=== PATIENT | female | born 1965 | race Caucasian/White ===

== ENCOUNTER 2017-06-26 15:17 | Observation (INO) ==
--- NOTE | 2017-06-26 18:05 | Emergency Department Note ---
Disposition Clinical Impression: Renal failure Qualifiers: Renal failure chronicity: acute on chronic Acute renal failure type: unspecified Chronic kidney disease stage: on chronic dialysis Qualified Code(s) : N17.9 - Acute kidney failure, unspecified Disposition: Admitted As Inpatient Condition: Fair Referrals: Yudy Dallas MD [Primary Care Provider] - Forms: ED Satisfaction Letter Time of Disposition: 19:36 General Adult HPI - General Chief complaint: ED Recheck/Abnormal Lab/Rx Stated complaint: Here for dialysis cath placement Time Seen by Provider: 06/26/17 17:59 Source: patient Limitations: no limitations Nursing Notes Reviewed: Yes Vital Signs Reviewed: Yes - History of Present Illness HPI Narrative: 51-year-old female who has a history of renal failure had a fistula placed in her left arm back in October they started using it 3 days ago and now it's clotted and infiltrated. did call-in notes that the patient will need to be admitted will need a permacath. Pt Subjective Complaint: Need dialysis catheter placed Onset (ago): day(s) Location: other (Generalized) Pain Scale: 10 Quality: aching Consistency: constant Improves with: nothing Worsens with: nothing Associated symptoms: Denies: cough, fever/chills - Related Data Allergies Allergy/AdvReac Type Severity Reaction Status Date / Time No Known Allergies Allergy Unverified 07/16/15 00:37 All systems ED: reviewed and negative except as stated. Constitutional: Denies: fever, chills, weakness, weight change Eyes: Denies: eye pain, eye discharge, vision change ENT ED: Denies: ear pain, throat pain, dental pain, hearing loss, epistaxis, congestion, dysphagia Cardiovascular: Denies: chest pain, palpitations, dyspnea on exertion, edema, syncope Respiratory: Denies: cough, dyspnea, wheezes, hemoptysis, stridor Gastrointestinal: Denies: abdominal pain, nausea, vomiting, diarrhea, constipation, hematemesis, melena, hematochezia Genitourinary: Denies: dysuria, frequency, hematuria, discharge Musculoskeletal: Denies: back pain, neck pain, arthralgia, myalgia Integumentary: Denies: rash, abrasion, lesions Neurological: Denies: headache, weakness, numbness, paresthesias, confusion, abnormal gait, vertigo Psychiatric: Denies: anxiety, depression, suicidal thoughts, homicidal thoughts , auditory hallucinations, visual hallucinations Endocrine: Denies: fatigue Hematological/Lymphatic: Denies: easy bleeding, easy bruising Allergic/Immunologic: Denies: facial swelling, urticaria Past Medical History - Past Medical History Medical history: Reports: diabetes, renal disease Psychiatric history: Reports: anxiety, depression - Social History Smoking Status: Former smoker Smokeless Tobacco Status: No Alcohol use: Reports: none Drug use: Reports: none Physical Exam - General Limitations: no limitations General appearance: alert, in no apparent distress - Head Head exam: atraumatic, normocephalic, normal inspection - Eye Eye exam: Present: normal appearance, PERRL, EOMI - ENT ENT exam: normal exam, normal oropharynx, mucous membranes moist - Neck Neck exam: Present: normal inspection, full ROM, trachea midline - Chest Chest inspection: Present: normal inspection, symmetric chest wall rise - Respiratory Respiratory exam: Present: normal lung sounds bilaterally - Cardiovascular Cardiovascular exam: Present: regular rate, normal rhythm, normal heart sounds - Abdominal Exam Abdominal exam: Present: soft, Non-Tender. Absent: tenderness, distention, guarding, rebound, rigidity - Expanded Upper Extremity Exam Arm exam: Present: other (Thrill is present at the shunt) - Expanded Lower Extremity Exam Hip/Pelvis exam: Present: full ROM Neurovascular/Tendon exam: Absent: motor deficit, sensory deficit, tendon deficit Gait: not tested/not observed - Back Exam Back exam: Present: normal inspection, full ROM. Absent: tenderness - Neurological Exam Neurological exam: Present: alert, oriented X3 - Psychiatric Psychiatric exam: Present: normal affect, normal mood - Skin Skin exam: Present: warm, dry, intact, normal color Course - Reevaluation(s) Reevaluation #1: 51-year-old with a history of chronic renal failure who had a fistula placed apparently the fistula does not work well started on chronic dialysis 3 days ago and has not been able to complete a session due to poor vascular functioning in the fistula. Patient is being admitted we'll get a permacath. Time: 19:37 - Consultations Consultation #1: Discussed with , admit to hospitalist Time: 16:30 Consultation #2: discussed with debra Oconnell. Time: 19:34 Vital Signs Temperature 98.1 F 06/26/17 16:00 Pulse Rate 90 06/26/17 16:00 Respiratory Rate 16 06/26/17 16:00 Blood Pressure 193/83 06/26/17 16:00 O2 Sat by Pulse Oximetry 95 06/26/17 16:00 Temperature 98.1 F 06/26/17 16:00 Pulse Rate 99 06/26/17 18:20 Respiratory Rate 18 06/26/17 18:20 Blood Pressure 189/58 06/26/17 18:20 O2 Sat by Pulse Oximetry 92 06/26/17 18:20 Oxygen Delivery Oxygen Delivery Room Air Medical Decision Making - Lab Data Result diagrams: 06/26/17 18:16 06/26/17 18:16 Lab Results 06/26/17 06/26/17 06/26/17 Range/Units 18:16 18:16 18:16 WBC 7.2 (4.3-11.1) K/mcL RBC 2.95 L (3.82-4.97) M/mcL Hgb 8.3 L (11.5-15.4) g/dL Hct 27.0 L (35.3-44.9) % MCV 91.5 (83.0-100.0) fL MCH 28.1 (28.0-33.3) pg MCHC 30.7 L (31.6-35.5) g/dL RDW 14.3 (11.5-14.5) % Plt Count 156 (140-400) K/mcL MPV 9.7 (9.4-12.4) fL Immature Gran % 2.0 (0-4) % Seg Neutrophils % 64.8 % Lymphocytes % 23.1 % Monocytes % 6.6 % Eosinophils % 3.1 % Basophils % 0.4 % Neutrophils # 4.6 (1.6-8.9) K/mcL Lymphocytes # 1.7 (0.6-4.6) K/mcL Monocytes # 0.5 (0.0-1.3) K/mcL Eosinophils # 0.2 (0.0-0.6) K/mcL Basophils # 0.0 (0.0-0.2) K/mcL PT 10.9 (9.4-12.1) Seconds INR 1.0 APTT 30.2 (26.0-36.0) Seconds Sodium 138 (136-145) mEq/L Potassium 4.8 H (3.5-4.5) mEq/L Chloride 100 (98-109) mEq/L Carbon Dioxide 31 H (19-29) mEq/L BUN 43 H (7-20) mg/dL Creatinine 3.79 H (0.57-1.11) mg/dL Est GFR ( Amer) 15 L (> 60) Est GFR (Non-Af Amer) 12 L (> 60) BUN/Creatinine Ratio 11 (6-26) Glucose 251 H (70-99) mg/dL Calculated Osmolality 305 H (280-300) Calcium 9.3 (8.6-10.8) mg/dL
[2017-06-26 18:39] LABS: Basophils % 0.4 %; Eosinophils # 0.2 K/mcL (0.0-0.6); Eosinophils % 3.1 %; Hemoglobin 8.3 g/dL (11.5-15.4); Lymphocytes # 1.7 K/mcL (0.6-4.6); Lymphocytes % 23.1 %; Mean Corpuscular HGB Conc 30.7 g/dL (31.6-35.5); Mean Corpuscular Hemoglobin 28.1 pg (28.0-33.3); Mean Corpuscular Volume 91.5 fL (83.0-100.0); Mean Platelet Volume 9.7 fL (9.4-12.4); Monocytes # 0.5 K/mcL (0.0-1.3); Monocytes % 6.6 %; Neutrophils # 4.6 K/mcL (1.6-8.9); Platelet Count 156 K/mcL (140-400); Red Blood Count 2.95 M/mcL (3.82-4.97); Red Cell Distribution Width 14.3 % (11.5-14.5); Segmented Neutrophils % 64.8 %
[2017-06-26 18:45] LABS: Prothrombin Time 10.9 Seconds (9.4-12.1)
[2017-06-26 18:48] LABS: Activated Partial Thrombo Time 30.2 Seconds (26.0-36.0)
[2017-06-26 18:51] LABS: Calcium 9.3 mg/dL (8.6-10.8); Potassium 4.8 mEq/L (3.5-4.5)
[2017-06-26] MEDS ORDERED: Naloxone 0.4 MG/ML INJ IVP PRN (20:36)
[2017-06-26] MEDS ORDERED: Acetaminophen 325 MG TABLET PO PRN (20:36)
[2017-06-26] MEDS ORDERED: cloNIDine HCl 0.1 MG TABLET PO PRN (20:38)
[2017-06-26] MEDS ORDERED: D5% in Water 1,000 ML IVC PRN (20:41)
[2017-06-26] MEDS ORDERED: Dextrose Gel 15 GM PO PRN ×2 (20:41)
[2017-06-26] MEDS ORDERED: *HR* Dextrose 50 % in Water (Syg) 50 ML SYRINGE IVP PRN (20:41)
--- NOTE | 2017-06-26 20:51 | Internal Med History&Physical ---
<Mandi Jones - Last Filed: 06/26/17 23:50> Date of Encounter: 06/26/17 Time of Encounter: 20:47 Assessment and Plan (1) Malfunction of arteriovenous dialysis fistula Current visit: Yes Status: Acute Patient's LUE AV fistula has not been functioning well since starting dialysis in the last week. She was sent by Dr. Segal for placement of permacath. Consult to IR for permacath placement NPO after midnight for procedure. Consult to Nephrology/Dr. Segal for likely dialysis after permacath placement Qualifiers: Encounter type: initial encounter Qualified Code(s): T82.590A - Other mechanical complication of surgically created arteriovenous fistula, initial encounter (2) ESRD (end stage renal disease) on dialysis Current visit: Yes Status: Acute Patient has ESRD secondary to diabetic nephropathy. She was initiated on dialysis in the last week, but unfortunately, her LUE AVF is not functioning properly. BUN and Cr are at baseline. She has mild hyperkalemia with K of 4.8. Check chemistry daily. Nephrology/Dr. Segla consulted. (3) Diabetes mellitus Current visit: Yes Status: Acute diabetic diet. 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 Will continue the clonidine 0.1mg PRN for SBP > 180. Qualifiers: Hypertension type: essential hypertension Qualified Code(s): I10 - Essential (primary) hypertension (5) DVT prophylaxis Current visit: Yes Status: Acute Sequential compression devices. Internal Medicine - H&P: HPI Chief complaint: malfunctioning AVF Admitted From: Emergency Dept Plans for Post Hospital Care: Home History of present illness: Ms. Prieto is a 51 year old female with hypertension, type 2 diabetes, end- stage renal disease who presented to the emergency department today at the instruction of her lift supervisor, Dr. Loomis because her AV fistula has not been functioning. Patient reportedly started hemodialysis just in the last week, and has had 2 treatments, that were not completed due to malfunctioning of the fistula, and an attempted treatment today. She reports her left upper extremity fistula is swollen, and painful. She denies any lightheadedness, headache, chest pain, palpitations, shortness of breath, nausea, vomiting, abdominal pain or diarrhea. She denies any fever, chills or sweats. Evaluation in the emergency department revealed anemia with hemoglobin of 8.3 consistent with her anemia of chronic kidney disease. BUN and creatinine were at her baseline with BUN at 43, and creatinine 3.79. She is mildly hyperkalemic with potassium of 4.8. His hyperglycemic with glucose of 251. Blood pressure was elevated at 193/83 and 189/58. On exam, patient was alert and oriented, in no acute distress. Heart had regular rate and rhythm, lungs are clear bilaterally to auscultation. Left upper extremity is edematous, with more edema over the fistula, with scattered ecchymosis around the fistula as well as 2 small blisters and skin tear, which patient reports is from tape. AVF with + bruit and + thrill. Bilateral lower extremities with +1 edema. Past Med Surg Social Fam HX - Past Medical History Source: patient Medical history: diabetes, hyperlipidemia, hypertension, renal disease Psychiatric history: anxiety, depression - Past Surgical History Surgical History: appendectomy, orthopedic, other, vascular surgery - Social History Smoking Status: Former smoker (70 pack year history) Smokeless Tobacco Status: No Alcohol use: none Drug use: none - Family History Father Living Status: Mother Living Status: Still Living Hx Family Cardiac Disorders: Yes Hx Family Endocrine Disorder: Yes (diabetes) Sister Living Status: Still Living Hx Family Cancer: Yes Internal Medicine - H&P: Meds Aspirin Enteric Coated [Aspirin EC] 81 mg PO DAILY 06/26/17 [History] Atorvastatin [Lipitor] 40 mg PO HS 06/26/17 [History] Fenofibrate Nanocrystallized [Triglide] 160 mg PO DAILY 06/26/17 [History] Furosemide [Lasix] 40 mg PO BID 06/26/17 [History] Gabapentin [Neurontin] 1,800 mg PO HS 06/26/17 [History] Gabapentin [Neurontin] 600 mg PO QAM 06/26/17 [History] Insulin ASPART [Novolog Flexpen] 0 unit SQ TIDWM 06/26/17 [History] Insulin DETEMIR [Levemir Flextouch] 60 unit SQ BID 06/26/17 [History] Omeprazole [PriLOSEC] 40 mg PO DAILY 06/26/17 [History] Oxazepam [Serax] 15 mg PO BID 06/26/17 [History] Promethazine [Phenergan] 25 mg PO BID PRN 06/26/17 [History] cloNIDine HCl [CloNIDine HCl] 0.1 mg PO Q48H PRN 06/26/17 [History] lamoTRIgine [Lamotrigine] 200 mg PO DAILY 06/26/17 [History] 3 Allergy/AdvReac Type Severity Reaction Status Date / Time No Known Allergies Allergy Unverified 07/16/15 00:37 All Systems PM: A 10-system review of systems was performed and is negative for pertinent findings except as documented above in the HPI. - Constitutional Constitutional: no chills, no fever(s), no night sweats - EENT Eyes: no change in vision, no discharge, no pain, no photophobia Ears: no ear discharge, no ear pain, no tinnitus Nose, mouth and throat: no dysphagia, no nasal discharge, no neck pain, no sore throat - Cardiovascular Cardiovascular ROS IM: no chest pain, no diaphoresis, no dyspnea, no lightheadedness, no palpitations, no syncope - Respiratory Respiratory: no cough, no dyspnea, no wheezing, no excessive phlegm production - Gastrointestinal Gastrointestinal: no abdominal pain, no diarrhea, no hematemesis, no hematochezia, no melena, no nausea, no vomiting - Genitourinary Genitourinary: no change in urinary stream, no dysuria, no flank pain, no hematuria - Musculoskeletal Musculoskeletal ROS IM: no numbness, no tingling - Integumentary Integumentary IM: no rash, no unusual bruising - Neurological Neurological ROS: no confusion, no convulsions, no focal weakness, no numbness, no tingling, no tremor(s) - Hematologic/Lymphatic Hematologic/Lymphatic: no easy bruising - Constitutional Vitals: Temp Pulse Resp BP Pulse Ox 98.1 F 98 16 156/66 93 06/26/17 16:00 06/26/17 20:32 06/26/17 20:32 06/26/17 20:32 06/26/17 20:32 General appearance: Present: A&O X 3, pleasant, no acute distress - Head Head exam: Present: atraumatic, normocephalic - Eye Eye exam: Present: PERRL, conjuntiva pink, sclera anicteric Pupils: Present: PERRL - Neck Neck exam general surgery: Present: supple, trachea midline. Absent: lymphadenopathy - Respiratory Respiratory exam: Present: CTAB. Absent: accessory muscle use, rales, rhonchi, wheezes - Cardiovascular Cardiovascular exam: Present: RRR, +S1, +S2. Absent: diastolic murmur, gallop, rubs, systolic murmur - GI/Abdominal GI/Abdominal exam: Present: normal bowel sounds, soft, no peritoneal signs. Absent: distended, tenderness - Extremities Exam Extremities exam: Present: warm, radial pulses palpable and symmetrical. Absent : calf tenderness, cyanotic, pedal edema Additional comments: LUE AVF with + bruit and + thrill - Expanded Upper Extremities Exam Upper Arm exam: Present: ecchymosis (left), swelling (left), tenderness (left) - Neurological Exam Neurological exam: Present: CN II-XII intact, oriented X3, no focal deficits. Absent: facial droop, speech deficit - Skin Skin exam: Present: dry Additional comments: two small blisters on LUE. Healing skin tear on LUE. BLE dry with fungal skin infection Internal Med - H&P Results - Labs CBC & Chem 7: 06/26/17 18:16 06/26/17 18:16 Labs: All Lab Results (24 Hours) 06/26/17 06/26/17 06/26/17 Range/Units 18:16 18:16 18:16 WBC 7.2 (4.3-11.1) K/mcL RBC 2.95 L (3.82-4.97) M/mcL Hgb 8.3 L (11.5-15.4) g/dL Hct 27.0 L (35.3-44.9) % MCV 91.5 (83.0-100.0) fL MCH 28.1 (28.0-33.3) pg MCHC 30.7 L (31.6-35.5) g/dL RDW 14.3 (11.5-14.5) % Plt Count 156 (140-400) K/mcL MPV 9.7 (9.4-12.4) fL Immature Gran % 2.0 (0-4) % Seg Neutrophils % 64.8 % Lymphocytes % 23.1 % Monocytes % 6.6 % Eosinophils % 3.1 % Basophils % 0.4 % Neutrophils # 4.6 (1.6-8.9) K/mcL Lymphocytes # 1.7 (0.6-4.6) K/mcL Monocytes # 0.5 (0.0-1.3) K/mcL Eosinophils # 0.2 (0.0-0.6) K/mcL Basophils # 0.0 (0.0-0.2) K/mcL PT 10.9 (9.4-12.1) Seconds INR 1.0 APTT 30.2 (26.0-36.0) Seconds Sodium 138 (136-145) mEq/L Potassium 4.8 H (3.5-4.5) mEq/L Chloride 100 (98-109) mEq/L Carbon Dioxide 31 H (19-29) mEq/L BUN 43 H (7-20) mg/dL Creatinine 3.79 H (0.57-1.11) mg/dL Est GFR ( Amer) 15 L (> 60) Est GFR (Non-Af Amer) 12 L (> 60) BUN/Creatinine Ratio 11 (6-26) Glucose 251 H (70-99) mg/dL Calculated Osmolality 305 H (280-300) Calcium 9.3 (8.6-10.8) mg/dL <Keo Douglas - Last Filed: 06/27/17 06:00> Date of Encounter: 06/26/17 Internal Medicine - H&P: HPI History of present illness: Ms. Prieto is a 51 year old female All Systems PM: A 10-system review of systems was performed and is negative for pertinent findings except as documented above in the HPI. - Constitutional Vitals: Temp Pulse Resp BP Pulse Ox 97.3 F L 88 17 148/78 94 06/27/17 05:17 06/27/17 05:17 06/27/17 05:17 06/27/17 05:17 06/27/17 05:17 Internal Med - H&P Results - Labs CBC & Chem 7: 06/26/17 18:16 06/26/17 18:16 - Attending Attestation I independently obtained history and examined this patient and my medical decision-making was reviewed with the nurse practitioner, Mandi Jones. I agree with the documented findings, disposition and treatment plan as described. My findings are summarized in the event known dictated on the same date of service.
[2017-06-26] MEDS ORDERED: Gabapentin 300 MG CAPSULE PO SCH (21:00)
[2017-06-26] MEDS ORDERED: Insulin LISPRO 300 UNITS/3 ML VIAL SQ SCH (21:00)
[2017-06-26 21:54] LABS: Hemoglobin A1C 11.4 %
[2017-06-26] MEDS: Clotrimazole 1% CRM 15 GM TUBE TP SCH (22:35)
[2017-06-26] MEDS: Furosemide 40 MG TABLET PO SCH (22:35)
--- NOTE | 2017-06-26 23:05 | Event Note ---
Date of Encounter: 06/26/17 Time of Encounter: 23:04 I independently obtained history and examined this patient and my medical decision-making was reviewed with the nurse practitioner, Mandi Jones. I agree with the documented findings, disposition and treatment plan as described. My findings are summarized below: Patient is awake alert oriented and in no acute distress. She denies chest pain shortness of breath nausea and decreased appetite. Heart exam reveals regular S1-S2 no murmurs. Lungs are clear bilaterally. Plan: We will place the patient in observation, consult IR for tunneled hemodialysis catheter placement. Consult nephrology. She does not have an indication for emergent hemodialysis.
[2017-06-26] MEDS: Insulin DETEMIR 100 UNIT/ML X5UNITS SQ SCH (23:33)
[2017-06-27] MEDS: Insulin LISPRO 300 UNITS/3 ML VIAL SQ SCH ×2 (06:22→06:47)
[2017-06-27 06:30] LABS: Basophils % 0.5 %; Eosinophils # 0.3 K/mcL (0.0-0.6); Eosinophils % 3.7 %; Hematocrit 24.4 % (35.3-44.9); Hemoglobin 7.5 g/dL (11.5-15.4); Immature Granulocytes % 2.1 % (0-4); Lymphocytes # 2.1 K/mcL (0.6-4.6); Lymphocytes % 27.3 %; Mean Corpuscular HGB Conc 30.7 g/dL (31.6-35.5); Mean Corpuscular Hemoglobin 27.8 pg (28.0-33.3); Mean Corpuscular Volume 90.4 fL (83.0-100.0); Mean Platelet Volume 9.9 fL (9.4-12.4); Monocytes # 0.7 K/mcL (0.0-1.3); Neutrophils # 4.4 K/mcL (1.6-8.9); Nucleated Red Blood Cells 0.3 /100 WBC (0); Platelet Count 146 K/mcL (140-400); Red Cell Distribution Width 14.5 % (11.5-14.5); Segmented Neutrophils % 57.4 %
[2017-06-27 06:43] LABS: Calcium 8.8 mg/dL (8.6-10.8); Magnesium 1.9 mg/dL (1.6-2.6); Potassium 4.8 mEq/L (3.5-4.5)
--- NOTE | 2017-06-27 07:55 | Internal Med Progress Note ---
Date of Encounter: 06/27/17 - Constitutional Vitals: Temp Pulse Resp BP Pulse Ox 97.3 F L 88 17 148/78 94 06/27/17 05:17 06/27/17 05:17 06/27/17 05:17 06/27/17 05:17 06/27/17 05:17 General appearance: Present: A&O X 3, pleasant, no acute distress Internal Medicine: Result - Labs CBC & Chem 7: 06/27/17 05:10 06/27/17 05:10 Labs: Short CBC 06/27/17 Range/Units 05:10 WBC 7.6 (4.3-11.1) K/mcL Hgb 7.5 L (11.5-15.4) g/dL Hct 24.4 L (35.3-44.9) % Plt Count 146 (140-400) K/mcL Neutrophils # 4.4 (1.6-8.9) K/mcL BMP 06/27/17 05:10 Sodium 139 Potassium 4.8 H Chloride 99 Carbon Dioxide 27 BUN 43 H Creatinine 4.07 H Glucose 294 H Calcium 8.8 - ABG Interpretation ABG results: PT/INR, D-dimer PT 10.9 Seconds (9.4-12.1) 06/26/17 18:16 Consult Discharge Plan - Plan Referrals: Yudy Dallas MD [Primary Care Provider] -
--- NOTE | 2017-06-27 08:02 | Nephrology Consult Note ---
Date of Encounter: 06/27/17 Time of Encounter: 12:30 Assessment and Plan (1) ESRD (end stage renal disease) on dialysis Status: Acute ESRD on HD T/T/S. She missed HD on Saturday: the [facility] staff were unable to cannulate her AVF. On Saturday she was brought back to attempt by more seasoned staff but the pt developed a large hematoma, per RN. The pt takes ASA and will have to wait for 5 days until a fistulagram and/or Permcath could be placed, as per [facility] policy. Since the pt would be at very high risk of morbidity and mortality if she were to miss dialysis for at least another 5 days, so I sent her to the ER for admission. The pt will likely need a temporary HD catheter in the meantime d/t missed dialysis. Because of this issue, she warrants admission. Addendum: I asked IR if they would still be willing to place a Permacath depsite the ASA 81mg, and very luckily, the agreed to place the Permacath today. Appreciate their assistance. Since the pt has missed so much HD, I'll also plan for an HD treatment today after the Permacath. If all goes smoothly today (i.e., placement of the Permacath and the dialysis), then she likely could be discharged. (2) Hypertension Status: Acute Associated with HTN Qualifiers: Hypertension type: essential hypertension Qualified Code(s): I10 - Essential (primary) hypertension (3) Malfunction of arteriovenous dialysis fistula Status: Acute Large hematoma, see above. Qualifiers: Encounter type: initial encounter Qualified Code(s): T82.590A - Other mechanical complication of surgically created arteriovenous fistula, initial encounter History of Present Illness - Reason for Consult Consult date: 06/26/17 end stage renal disease Requesting physician: Keo Douglas - Chief Complaint Dialysis access dysfunction - History of Present Illness Danielle Prieto is a very pleasant 51 y/o WF with a pmh of longstanding T2DM, HTN, obesity, advanced CKD with recent initiation of ESRD who presented with a large hematoma from an infiltrated LUE AVF. She reported recent nausea without emesis while on HD, but did express that her AVF was not working well. Her AVF was placed in advance with her local vasc surgeon in [facility] Dr. Zamudio. She denied F /C/D or dysuria. I'm listed as her primary care transitions nurse; she dialyzes at [facility] in [facility]. She did not affirm CP, new dyspnea. Past Med Surg Social Fam HX - Past Medical History Medical history: diabetes, hyperlipidemia, hypertension, renal disease Psychiatric history: anxiety, depression - Past Surgical History Surgical History: appendectomy, orthopedic, other, vascular surgery - Social History Smoking Status: Former smoker (70 pack year history) Smokeless Tobacco Status: No Alcohol use: none Drug use: none - Family History Father Living Status: Mother Living Status: Still Living Hx Family Cardiac Disorders: Yes Hx Family Endocrine Disorder: Yes (diabetes) Sister Living Status: Still Living Hx Family Cancer: Yes Medications and Allergies Aspirin Enteric Coated [Aspirin EC] 81 mg PO DAILY 06/26/17 [History] Atorvastatin [Lipitor] 40 mg PO HS 06/26/17 [History] Fenofibrate Nanocrystallized [Triglide] 160 mg PO DAILY 06/26/17 [History] Furosemide [Lasix] 40 mg PO BID 06/26/17 [History] Gabapentin [Neurontin] 1,800 mg PO HS 06/26/17 [History] Gabapentin [Neurontin] 600 mg PO QAM 06/26/17 [History] Insulin ASPART [Novolog Flexpen] 0 unit SQ TIDWM 06/26/17 [History] Insulin DETEMIR [Levemir Flextouch] 60 unit SQ BID 06/26/17 [History] Omeprazole [PriLOSEC] 40 mg PO DAILY 06/26/17 [History] Oxazepam [Serax] 15 mg PO BID 06/26/17 [History] Promethazine [Phenergan] 25 mg PO BID PRN 06/26/17 [History] cloNIDine HCl [CloNIDine HCl] 0.1 mg PO Q48H PRN 06/26/17 [History] lamoTRIgine [Lamotrigine] 200 mg PO DAILY 06/26/17 [History] 3 Allergy/AdvReac Type Severity Reaction Status Date / Time No Known Allergies Allergy Unverified 07/16/15 00:37 Review of Systems All Systems: reviewed and no additional remarkable complaints except as stated Exam - Vital Signs Vital signs: Initial Vital Signs Temp Pulse Resp BP Pulse Ox 98.1 F 90 16 193/83 95 06/26/17 16:00 08/23/17 16:00 06/26/17 16:00 06/26/17 16:00 06/26/17 16:00 Vital Signs - Last 8 Hours Temp Pulse Resp BP Pulse Ox 06/27/17 05:17 97.3 F L 88 17 148/78 94 Intake and Output 06/26/17 06/26/17 06/27/17 15:59 23:59 07:59 Output Total 600 / 600 300 / 300 Balance -600 / -600 -300 / -300 Output: Urine 600 / 600 300 / 300 Other: Stool Size Moderate Stool Consistency formed Stool Characteristics Normal for Patient Stool Color Brown Weight 113.852 kg 113.852 kg Blood Glucose* 394 273 Patient Weight 06/27/17 23:59 Weight 113.852 kg - General Appearance General appearance: well-developed, well-nourished, appears started age, obese, chronically ill EENT: ATNC, PERRL, mucous membranes moist Neck: supple Respiratory: clear Cardiology: edema (1+ pretibial LE edema bilaterally), regular rate, regular rhythm, normal S1, normal S2 - Dialysis Access Dialysis Vascular Access: Arteriovenous Fistula (Left UE AVF with large hematoma ) thrill: Yes bruit: Yes Gastrointestinal: normoactive bowel sounds, no tenderness, no guarding, obese Integumentary: warm and dry, ecchymotic Neurologic: no focal deficit, no asterixis, alert and oriented x3 Musculoskeletal: no deformities, no clubbing Psychiatric: mood/affect appropriate, cooperative Results - Lab Results 06/27/17 05:10 06/27/17 05:10 Most recent lab results Calcium 8.8 mg/dL (8.6-10.8) 06/27/17 05:10 Magnesium 1.9 mg/dL (1.6-2.6) 06/27/17 05:10 I reviewed the above data [email or web address] and also reviewed labs, meds, vitals, I/Os, imaging and progress notes. Consult Discharge Plan - Plan Additional Instructions: Follow-up with your primary care provider Follow-up with your care transitions nurse Return to the hospital if your symptoms return or worsen Referrals: Yudy Dallas MD [Primary Care Provider] - 07/19/17 9:00 am ()
[2017-06-27] MEDS ORDERED: 0.9 % Sodium Chloride 250 ML IVC PRN (08:19)
[2017-06-27] MEDS ORDERED: Darbepoetin 100 MCG/0.5 ML SYRINGE SQ SCH (08:30)
[2017-06-27] MEDS: Furosemide 40 MG TABLET PO SCH (08:49)
[2017-06-27] MEDS: Clotrimazole 1% CRM 15 GM TUBE TP SCH (08:55)
[2017-06-27] MEDS: Insulin DETEMIR 100 UNIT/ML X5UNITS SQ SCH (09:00)
[2017-06-27] MEDS ORDERED: Fenofibrate 54 MG TABLET PO SCH (09:00)
[2017-06-27] MEDS ORDERED: Aspirin Enteric Coated 81 MG Tablet PO SCH (09:00)
[2017-06-27] MEDS ORDERED: Gabapentin 300 MG CAPSULE PO SCH (09:00)
[2017-06-27] MEDS ORDERED: lamoTRIgine 100 MG TABLET PO SCH (09:00)
--- NOTE | 2017-06-27 10:55 | Discharge Summary ---
<Fredo Ohara R - Last Filed: 06/27/17 14:15> Date of Encounter: 06/27/17 Time of Encounter: 10:52 - Discharge Diagnosis (1) ESRD (end stage renal disease) on dialysis Priority: Primary Status: Acute (2) Malfunction of arteriovenous dialysis fistula Priority: Secondary Status: Acute Qualifiers: Encounter type: initial encounter Qualified Code(s): T82.590A - Other mechanical complication of surgically created arteriovenous fistula, initial encounter (3) Hypertension Priority: Secondary Status: Acute Qualifiers: Hypertension type: essential hypertension Qualified Code(s): I10 - Essential (primary) hypertension - Discharge Medications Home Medications: Aspirin Enteric Coated [Aspirin EC] 81 mg PO DAILY 06/26/17 [History] Atorvastatin [Lipitor] 40 mg PO HS 06/26/17 [History] Fenofibrate Nanocrystallized [Triglide] 160 mg PO DAILY 06/26/17 [History] Furosemide [Lasix] 40 mg PO BID 06/26/17 [History] Gabapentin [Neurontin] 1,800 mg PO HS 06/26/17 [History] Gabapentin [Neurontin] 600 mg PO QAM 06/26/17 [History] Insulin ASPART [Novolog Flexpen] 0 unit SQ TIDWM 06/26/17 [History] Insulin DETEMIR [Levemir Flextouch] 60 unit SQ BID 06/26/17 [History] Omeprazole [PriLOSEC] 40 mg PO DAILY 06/26/17 [History] Oxazepam [Serax] 15 mg PO BID 06/26/17 [History] Promethazine [Phenergan] 25 mg PO BID PRN 06/26/17 [History] cloNIDine HCl [CloNIDine HCl] 0.1 mg PO Q48H PRN 06/26/17 [History] lamoTRIgine [Lamotrigine] 200 mg PO DAILY 06/26/17 [History] Allergies/Adverse Reactions: 3 Allergy/AdvReac Type Severity Reaction Status Date / Time No Known Allergies Allergy Unverified 07/16/15 00:37 Procedures/tests Complete & Pending: Procedures Performed prior 72 hours Category Date Time Status 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 [IR] Routine IR 06/27/17 Ordered IR us guide needle place [IR] Routine IR 06/27/17 Ordered Venous Doppler [EV venous imaging LE BI] Routine Y 06/27/17 08:52 Completed Date of admission: 06/26/17 20:07 Primary care physician: Yudy Dallas MD Consults: 06/26/17 20:43 Consult to Interventional Radiology [CONS] Routine Consulting Provider: Radiology Interventional Cols Reason for Consult: Permacath placement for hemodialysis Call Completed: No 06/27/17 08:30 Consult to Dialysis [CONS] ONCE Discharging clinician: Fredo Ohara Anticipated date of discharge: 06/27/17 - Patient Status Disposition: Home, Self-Care Condition: Fair Functional capacity at discharge: independent ambulation Overall status at discharge: patient is back to baseline - Discharge Instructions Follow Up With: Yudy Dallas MD [Primary Care Provider] - 07/19/17 9:00 am () Additional Instructions: Follow-up with your primary care provider Follow-up with your rugby league footballer Return to the hospital if your symptoms return or worsen - Diet and Activity Activity: increase activity as tolerated Diet: advance to your usual diet Interval History: Patient seen and examined. Reports she is feel well with no complaints. Awaiting IR permacath placement and hemodialysis. Denies chest pain, dyspnea, cough, abdominal pain, N/V/D, dysuria, or leg pain/swelling. Hospital course: Ms. Prieto is a 51 year old female with PMH of hypertension, type 2 diabetes, end-stage renal disease who presented at the instruction of her rugby league footballer, Dr. Loomis because her AV fistula has not been functioning. Patient reportedly started hemodialysis just in the last week, and has had 2 treatments, that were not completed due to malfunctioning of the fistula. She reports her left upper extremity fistula is swollen, and painful. She received a permacath per IR and dialysis today. She is to be discharged home. - Time Spent with Patient Total time spent providing and/or coordinating discharge services: Greater than 30 minutes - Constitutional Vitals: Temp Pulse Resp BP Pulse Ox 97.6 F 85 18 144/78 93 06/27/17 08:16 06/27/17 08:16 06/27/17 08:16 06/27/17 08:16 06/27/17 08:16 General appearance: Present: A&O X 3, pleasant, no acute distress - Head Head exam: Present: atraumatic, normocephalic - Eye Eye exam: Present: conjuntiva pink, sclera anicteric - ENT ENT exam: Present: mucous membranes moist - Respiratory Respiratory exam: Present: CTAB. Absent: rales, rhonchi, wheezes - Cardiovascular Cardiovascular exam: Present: RRR, +S1, +S2. Absent: diastolic murmur, systolic murmur - GI/Abdominal GI/Abdominal exam: Present: normal bowel sounds, soft. Absent: distended, rigid , tenderness - Extremities Exam Extremities exam: Present: pedal edema, warm, radial pulses palpable and symmetrical Additional comments: Edema and swelling of left upper extremity in the location of AV fistula. 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 Prieto is a 51 year old female - Time Spent with Patient Total time spent providing and/or coordinating discharge services: - Constitutional Vitals: Temp Pulse Resp BP Pulse Ox 97.9 F 96 18 126/71 100 06/27/17 17:30 06/27/17 13:05 06/27/17 17:30 06/27/17 17:30 06/27/17 13:05 - Attending Attestation I examined this patient and my medical decision-making was reviewed with the Resident Physician. I agree with the documented findings, disposition and treatment plan as described except to the extent set forth below. follow up with nephrology
[2017-06-27] MEDS ORDERED: Insulin LISPRO 300 UNITS/3 ML VIAL SQ SCH ×3 (11:30→21:00)
[2017-06-27] MEDS ORDERED: Heparin 1,000 UNITS/500 mL NS 500 ML ONE (11:45)
[2017-06-27] MEDS ORDERED: *HR* Midazolam HCl 2 MG/2 ML VIAL IVP PRN (12:10)
[2017-06-27] MEDS ORDERED: *HR* FentaNYL (PF) 100 MCG/2 ML VIAL IVP PRN (12:10)
[2017-06-27] MEDS ORDERED: ceFAZolin 2,000 MG in D5% in Water (Mini-Bag+) 100 ML IVPB ONE (12:10)
[2017-06-27] MEDS ORDERED: 0.9 % Sodium Chloride 500 ML ONE (12:33)
[2017-06-27] MEDS ORDERED: ceFAZolin 2,000 MG in D5% in Water 100 ML IVPB ONE (13:00)
--- NOTE | 2017-06-27 13:27 | IR Procedure Note ---
Date of procedure: 06/27/17 Consent Obtained: Written consent Timeout: Correct patient and procedure verified, Correct site verified, Time out performed, Skin prep completed Local anesthetic: Lidocaine 1% Indications: Renal insufficiency Procedure Performed: Tunneled HD catheter placement Site/Technique: RIJV used for access Results/Findings: Working well. Ok to use. Estimated blood loss (cc): 2 Complications: None; Tolerated procedure well Post Procedure Treatment Plan: Monitoring in VIR
[2017-06-27 17:46] VITALS: BP 126/71
--- NOTE | 2017-07-01 08:31 | Venous Imaging Report ---
LE Venous Duplex Patient Name:Danielle Prieto Order Number:[id number] Procedure Date:06/27/2017 Date:1965Age:51 yrs Gender:Female Location:[facility] Room #: 2A25 Train Examiner:Marcus Scott CS Referring MD:Terry Wilkerson MD access representative:Yudy Dallas MD Reading MD:Srikanth Mireles MD Primary Indications:Swelling Secondary Indications: Risk Factors Yes/No Anticoagulants Yes Impressions: Bilateral lower extremity: normal superficial and deep exam. Recommendations: After imaging the patient returned to their room. Findings Venous Duplex Results: Right: Venous imaging of the lower extremity reveals full patency and normal vessel compressibility of the right distal iliac, right common femoral, right superficial femoral, right popliteal, right posterior tibial, right peroneal, right great saphenous and right lesser saphenous. Doppler signals in the evaluated veins were normal. Left: Venous imaging of the lower extremity reveals full patency and normal vessel compressibility of the left distal iliac, left common femoral, left superficial femoral, left popliteal, left posterior tibial, left peroneal, left great saphenous and left lesser saphenous. Doppler signals in the evaluated veins were normal. Prior Study: No prior study available for comparison. Lower Extremity Venous Duplex Side Vein Compress Spontaneous Flow Augment Diameter (cm) Depth (cm) Right Distal Iliac Normal Yes Phasic Yes Right Common Femoral Normal Yes Phasic Yes Right Superficial Femoral Normal Yes Phasic Yes Right Popliteal Normal Yes Phasic Yes Right Posterior Tibial Normal Yes Phasic Yes Right Peroneal Normal Yes Phasic Yes Right Great Saphenous Normal Yes Phasic Yes Right Lesser Saphenous Normal Yes Phasic Yes Left Distal Iliac Normal Yes Phasic Yes Left Common Femoral Normal Yes Phasic Yes Left Superficial Femoral Normal Yes Phasic Yes Left Popliteal Normal Yes Phasic Yes Left Posterior Tibial Normal Yes Phasic Yes Left Peroneal Normal Yes Phasic Yes Left Great Saphenous Normal Yes Phasic Yes Left Lesser Saphenous Normal Yes Phasic Yes Updated by Srikanth Mireles MD on 06/29/2017 3:59:42 PM electronically signed on 06/29/2017 4:00:01 PM with status of Final
== END 2017-06-27 18:30 | disposition home or self-care (01) ==
LOC: 2ANU 15:17 → EMEROO 15:17 → 2ANU 21:00
PROVIDERS: ADMIT Nurse Practitioner Family; ATTEND Internal Medicine
PROC: IRPERMA (2017-06-27 12:00)

== ENCOUNTER 2020-06-16 12:12 | Inpatient (IN) ==
[2020-06-16] MEDS ORDERED: *HR* OxyCODONE Immed Rel 5 MG TABLET PO PRN (17:33)
[2020-06-16] MEDS ORDERED: Ondansetron ODT 4 MG TAB.RAPDIS SL PRN (17:33)
[2020-06-16] MEDS ORDERED: Acetaminophen 325 MG TABLET PO PRN (17:33)
[2020-06-16] MEDS ORDERED: Naloxone 0.4 MG/ML INJ IVP PRN (17:33)
[2020-06-16] MEDS ORDERED: Dextrose Gel 15 GM/37.5 ML TUBE PO PRN ×2 (17:39)
[2020-06-16] MEDS ORDERED: *HR* Dextrose 50 % in Water (Vial) 50 ML VIAL IVP PRN (17:39)
[2020-06-16] MEDS ORDERED: D5% in Water 1,000 ML IVC PRN (17:39)
[2020-06-16] MEDS ORDERED: Vancomycin 1,250 MG/262.5 ML IV.SOLN IVPB ONE (17:58)
[2020-06-16] MEDS ORDERED: cefTRIAXone 2,000 MG in Water for inj. (sterile) 20 ML IVP SCH (18:00)
[2020-06-16] MEDS ORDERED: Vancomycin 1 EACH in 0.9 % Sodium Chloride 250 ML IVPB SCH (18:00)
[2020-06-16 18:04] LABS: Basophils % 0.5 %; Eosinophils # 0.1 K/mcL (0.0-0.6); Eosinophils % 1.3 %; Hematocrit 36.5 % (35.3-44.9); Hemoglobin 10.9 g/dL (11.5-15.4); Lymphocytes # 1.4 K/mcL (0.6-4.6); Lymphocytes % 17.4 %; Mean Corpuscular HGB Conc 29.9 g/dL (31.6-35.5); Mean Corpuscular Hemoglobin 31.2 pg (28.0-33.3); Mean Corpuscular Volume 104.6 fL (83.0-100.0); Monocytes # 0.4 K/mcL (0.0-1.3); Monocytes % 4.9 %; Neutrophils # 6.1 K/mcL (1.6-8.9); Platelet Count 133 K/mcL (140-400); Red Blood Count 3.49 M/mcL (3.82-4.97); Segmented Neutrophils % 74.9 %; White Blood Count 8.2 K/mcL (4.3-11.1)
[2020-06-16] MEDS: Cefepime HCl 1,000 MG in Water for inj. (sterile) 10 ML IVP SCH (18:17)
[2020-06-16 18:39] LABS: Hepatitis B Surface Antibody 49.44 mIU/mL
[2020-06-16 18:50] LABS: Hepatitis B Surface Antigen Nonreactive (Nonreactive)
[2020-06-16 19:04] LABS: Albumin 2.6 g/dL (3.5-5.7); Albumin/Globulin Ratio 0.7 (1.1-2.2); Bilirubin,Total 0.3 mg/dL (0.3-1.0); Calcium 8.1 mg/dL (8.6-10.3); Globulin 3.7 g/dL (2.4-3.5); Magnesium 1.6 mg/dL (1.6-2.6); Phosphorous 5.9 mg/dL (2.7-4.5); Potassium 3.5 mEq/L (3.5-5.1); Total Protein 6.3 g/dL (6.4-8.9)
[2020-06-16] MEDS: SUCROFERRIC OXYHYDROXIDE PO SCH ×2 (20:53)
[2020-06-16] MEDS: Insulin LISPRO 300 UNITS/3 ML VIAL SQ SCH (20:54)
[2020-06-16] MEDS: Insulin DETEMIR 100 UNIT/ML X5UNITS SQ SCH (20:54)
[2020-06-16] MEDS: Furosemide 40 MG TABLET PO SCH (20:59)
[2020-06-16 23:11] LABS: Appearance of Peritoneal Fl HAZY (Clear)
[2020-06-16] MEDS ORDERED: Acetaminophen IV 1,000 MG/100 ML INFUS..BTL IVPB ONE (23:18)
[2020-06-16] MEDS ORDERED: methocarbamoL 500 MG TABLET PO SCH (23:45)
[2020-06-16 23:58] LABS: RBC,Peritoneal Fluid < 2000 RBC/mcL
[2020-06-17] MEDS ORDERED: methocarbamoL 500 MG TABLET PO SCH
[2020-06-17] MEDS: methocarbamoL 500 MG TABLET PO SCH ×4 (00:01→23:09)
[2020-06-17 01:00] LABS: Basophils,Peritoneal Fluid 0 %; Eosinophils,Peritoneal Fluid 0 %
[2020-06-17 06:02] LABS: Basophils % 0.5 %; Eosinophils # 0.2 K/mcL (0.0-0.6); Eosinophils % 1.8 %; Hematocrit 32.5 % (35.3-44.9); Hemoglobin 9.9 g/dL (11.5-15.4); Immature Granulocytes % 1.3 % (0-4); Lymphocytes # 1.9 K/mcL (0.6-4.6); Lymphocytes % 23.3 %; Mean Corpuscular HGB Conc 30.5 g/dL (31.6-35.5); Mean Corpuscular Hemoglobin 31.2 pg (28.0-33.3); Mean Corpuscular Volume 102.5 fL (83.0-100.0); Mean Platelet Volume 10.5 fL (9.4-12.4); Monocytes # 0.5 K/mcL (0.0-1.3); Monocytes % 6.5 %; Neutrophils # 5.4 K/mcL (1.6-8.9); Platelet Count 123 K/mcL (140-400); Red Blood Count 3.17 M/mcL (3.82-4.97); Red Cell Distribution Width 16.6 % (11.5-14.5); Segmented Neutrophils % 66.6 %; White Blood Count 8.2 K/mcL (4.3-11.1)
[2020-06-17 06:14] LABS: Albumin 2.2 g/dL (3.5-5.7); Albumin/Globulin Ratio 0.6 (1.1-2.2); Bilirubin,Total 0.3 mg/dL (0.3-1.0); Globulin 3.4 g/dL (2.4-3.5); Magnesium 1.7 mg/dL (1.6-2.6); Phosphorous 6.7 mg/dL (2.7-4.5); Potassium 3.5 mEq/L (3.5-5.1); Total Protein 5.6 g/dL (6.4-8.9)
[2020-06-17] MEDS ORDERED: Perit. Dialysis with Dex 1.5 % 6,000 ML PERITONEAL SCH (07:30)
[2020-06-17] MEDS ORDERED: Perit. Dialysis with Dex 2.5 % 6,000 ML PERITONEAL SCH (07:30)
[2020-06-17] MEDS: lamoTRIgine 100 MG TABLET PO SCH (09:18)
[2020-06-17] MEDS: Furosemide 40 MG TABLET PO SCH ×2 (09:18→17:20)
[2020-06-17] MEDS: allopurinoL 100 MG TABLET PO SCH (09:18)
[2020-06-17] MEDS: Aspirin Enteric Coated 81 MG Tablet PO SCH (09:18)
[2020-06-17] MEDS: Insulin DETEMIR 100 UNIT/ML X5UNITS SQ SCH ×3 (09:19→21:16)
[2020-06-17] MEDS: SUCROFERRIC OXYHYDROXIDE PO SCH ×4 (09:19→17:19)
[2020-06-17] MEDS: Insulin LISPRO 300 UNITS/3 ML VIAL SQ SCH ×4 (09:22→21:16)
[2020-06-17] MEDS: Cefepime HCl 1,000 MG in Water for inj. (sterile) 10 ML IVP SCH (17:21)
[2020-06-17] MEDS ORDERED: NON-FORMULARY MEDICATION 1 EACH EACH (Atorvastatin Calcium [Lipitor] 80 MG) PO SCH (18:00)
[2020-06-17 19:42] LABS: Adenovirus F 40/41 PCR Not detected (Not detect); Astrovirus PCR Not detected (Not detect); C.difficile Toxin A/B Gene PCR Not detected (Not detect); Campylobacter by PCR Not detected (Not detect); Cryptosporidium by PCR Not detected (Not detect); Cyclospora cayetanensis PCR Not detected (Not detect); E. coli O157 by PCR Not detected (Not detect); Entamoeba histolytica PCR Not detected (Not detect); Enteroaggregative E.coli(EAEC) Not detected (Not detect); Enteropathogenic E.coli(EPEC) Not detected (Not detect); Enterotoxigenic E.coli (ETEC) Not detected (Not detect); Giardia lamblia PCR Not detected (Not detect); Norovirus GI/GII PCR Not detected (Not detect); Plesiomonas shigelloides PCR Not detected (Not detect); Rotavirus A PCR Not detected (Not detect); Salmonella PCR Not detected (Not detect); Sapovirus PCR Not detected (Not detect); Shig/EnteroinvasiveE coli EIEC Not detected (Not detect); Shigalike tox-prod E coli STEC Not detected (Not detect); Vibrio PCR Not detected (Not detect); Vibrio cholerae PCR Not detected (Not detect); Yersinia enterocolitica PCR Not detected (Not detect)
[2020-06-17] MEDS ORDERED: LAMOTRIGINE 200 MG PO SCH (21:00)
[2020-06-18 05:24] LABS: Hematocrit 33.9 % (35.3-44.9); Hemoglobin 10.4 g/dL (11.5-15.4); Mean Corpuscular HGB Conc 30.7 g/dL (31.6-35.5); Mean Corpuscular Hemoglobin 31.9 pg (28.0-33.3); Mean Platelet Volume 10.4 fL (9.4-12.4); Platelet Count 134 K/mcL (140-400); Red Blood Count 3.26 M/mcL (3.82-4.97); Red Cell Distribution Width 16.4 % (11.5-14.5)
[2020-06-18 05:28] LABS: Calcium 7.8 mg/dL (8.6-10.3); Potassium 3.4 mEq/L (3.5-5.1)
[2020-06-18 06:32] VITALS: BP 103/73
[2020-06-18] MEDS: Insulin LISPRO 300 UNITS/3 ML VIAL SQ SCH (07:44)
[2020-06-18] MEDS ORDERED: SUCROFERRIC OXYHYDROXIDE PO SCH (08:00)
[2020-06-18] MEDS ORDERED: Perit. Dialysis with Dex 2.5 % 12,000 ML PERITONEAL ONE (08:15)
[2020-06-18] MEDS ORDERED: Cholecalciferol (D-3) 1,000 UNIT (25MCG) TABLET PO SCH (09:00)
[2020-06-18] MEDS ORDERED: Colchicine 0.6 MG TABLET PO SCH (09:00)
[2020-06-18] MEDS ORDERED: Gentamicin Oint 15 GM TUBE TP SCH (09:00)
[2020-06-18] MEDS ORDERED: Sulfamethoxazole/Trimeth DS 1 EACH TABLET PO SCH (09:15)
[2020-06-18] MEDS: allopurinoL 100 MG TABLET PO SCH (10:07)
[2020-06-18] MEDS: methocarbamoL 500 MG TABLET PO SCH (10:07)
[2020-06-18] MEDS: lamoTRIgine 100 MG TABLET PO SCH (10:07)
[2020-06-18] MEDS: Furosemide 40 MG TABLET PO SCH (10:07)
[2020-06-18] MEDS: Aspirin Enteric Coated 81 MG Tablet PO SCH (10:08)
[2020-06-18] MEDS: Insulin DETEMIR 100 UNIT/ML X5UNITS SQ SCH (10:10)
== END 2020-06-18 12:14 | disposition home health service (06) | DRG 371 ==
LOC: 2ANU → SUATTDRO 15:20
PROVIDERS: ADMIT Family Medicine; ATTEND Family Medicine

== ENCOUNTER 2020-07-27 05:16 | Observation (INO) ==
[2020-07-27] MEDS ORDERED: Acetaminophen 325 MG TABLET PO PRN (11:13)
[2020-07-27] MEDS ORDERED: Ondansetron 4 MG/2 ML VIAL IVP PRN (11:13)
[2020-07-27] MEDS ORDERED: Naloxone 0.4 MG/ML INJ IVP PRN (11:13)
[2020-07-27] MEDS ORDERED: Dextrose Gel 15 GM/37.5 ML TUBE PO PRN ×2 (11:20)
[2020-07-27] MEDS ORDERED: *HR* Dextrose 50 % in Water (Vial) 50 ML VIAL IVP PRN (11:20)
[2020-07-27] MEDS ORDERED: D5% in Water 1,000 ML IVC PRN (11:20)
[2020-07-27] MEDS: Insulin LISPRO 300 UNITS/3 ML VIAL SQ SCH ×3 (12:18→22:04)
[2020-07-27 15:26] LABS: INR 1.2; Prothrombin Time 13.9 Seconds (9.4-12.1)
[2020-07-27 15:28] LABS: Basophils % 0.3 %; Eosinophils # 0.1 K/mcL (0.0-0.6); Eosinophils % 0.6 %; Hematocrit 38.7 % (35.3-44.9); Hemoglobin 11.6 g/dL (11.5-15.4); Lymphocytes # 1.1 K/mcL (0.6-4.6); Lymphocytes % 11.3 %; Mean Corpuscular Hemoglobin 30.2 pg (28.0-33.3); Mean Corpuscular Volume 100.8 fL (83.0-100.0); Mean Platelet Volume 9.4 fL (9.4-12.4); Monocytes # 0.5 K/mcL (0.0-1.3); Monocytes % 4.9 %; Neutrophils # 7.7 K/mcL (1.6-8.9); Platelet Count 106 K/mcL (140-400); Red Blood Count 3.84 M/mcL (3.82-4.97); Red Cell Distribution Width 16.6 % (11.5-14.5); Segmented Neutrophils % 81.9 %; White Blood Count 9.4 K/mcL (4.3-11.1)
[2020-07-27 15:41] LABS: Calcium 7.6 mg/dL (8.6-10.3); Magnesium 1.7 mg/dL (1.6-2.6); Troponin I 0.03 ng/mL (< 0.04)
[2020-07-27] MEDS ORDERED: Potassium Effervescent 25 MEQ TABLET.EFF PO ONE (17:23)
[2020-07-27] MEDS ORDERED: 0.9 % Sodium Chloride 500 ML IVC SCH (17:30)
[2020-07-27 18:34] LABS: Adenovirus F 40/41 PCR Not detected (Not detect); Astrovirus PCR Not detected (Not detect); C.difficile Toxin A/B Gene PCR Not detected (Not detect); Campylobacter by PCR Not detected (Not detect); Cryptosporidium by PCR Not detected (Not detect); Cyclospora cayetanensis PCR Not detected (Not detect); E. coli O157 by PCR Not detected (Not detect); Entamoeba histolytica PCR Not detected (Not detect); Enteroaggregative E.coli(EAEC) Not detected (Not detect); Enteropathogenic E.coli(EPEC) Not detected (Not detect); Enterotoxigenic E.coli (ETEC) Not detected (Not detect); Giardia lamblia PCR Not detected (Not detect); Norovirus GI/GII PCR Not detected (Not detect); Plesiomonas shigelloides PCR Not detected (Not detect); Rotavirus A PCR Not detected (Not detect); Salmonella PCR Not detected (Not detect); Sapovirus PCR Not detected (Not detect); Shig/EnteroinvasiveE coli EIEC Not detected (Not detect); Shigalike tox-prod E coli STEC Not detected (Not detect); Vibrio PCR Not detected (Not detect); Vibrio cholerae PCR Not detected (Not detect); Yersinia enterocolitica PCR Not detected (Not detect)
[2020-07-27] MEDS: *HR* Heparin 5,000 UNIT/ML VIAL SQ SCH (22:04)
[2020-07-28 05:22] LABS: Basophils % 0.4 %; Mean Platelet Volume 9.3 fL (9.4-12.4)
[2020-07-28 05:24] LABS: Eosinophils # 0.1 K/mcL (0.0-0.6); Eosinophils % 1.1 %; Hematocrit 38.2 % (35.3-44.9); Hemoglobin 11.1 g/dL (11.5-15.4); Immature Granulocytes % 0.9 % (0-4); Immature Platelets 0.9 % (1.1-6.1); Lymphocytes # 1.3 K/mcL (0.6-4.6); Lymphocytes % 16.4 %; Mean Corpuscular HGB Conc 29.1 g/dL (31.6-35.5); Mean Corpuscular Hemoglobin 30.2 pg (28.0-33.3); Mean Corpuscular Volume 104.1 fL (83.0-100.0); Monocytes # 0.5 K/mcL (0.0-1.3); Monocytes % 6.2 %; Red Blood Count 3.67 M/mcL (3.82-4.97); Red Cell Distribution Width 16.9 % (11.5-14.5); White Blood Count 8.1 K/mcL (4.3-11.1)
[2020-07-28 05:27] LABS: Neutrophils # 6.1 K/mcL (1.6-8.9); Platelet Count 92 K/mcL (140-400)
[2020-07-28 05:34] LABS: Calcium 7.4 mg/dL (8.6-10.3); Magnesium 1.7 mg/dL (1.6-2.6); Phosphorous 5.2 mg/dL (2.7-4.5); Potassium 3.6 mEq/L (3.5-5.1)
[2020-07-28] MEDS ORDERED: Perit. Dialysis with Dex 1.5 % 12,000 ML PERITONEAL ONE (07:42)
[2020-07-28 07:57] LABS: Estimated Average Glucose 131 mg/dl
[2020-07-28] MEDS: Insulin LISPRO 300 UNITS/3 ML VIAL SQ SCH ×4 (07:58→22:18)
[2020-07-28] MEDS: *HR* Heparin 5,000 UNIT/ML VIAL SQ SCH ×3 (08:04→21:30)
[2020-07-28] MEDS: Gentamicin Oint 15 GM TUBE TP SCH (10:42)
[2020-07-28] MEDS ORDERED: 0.9 % Sodium Chloride 250 ML IV ONE (12:09)
[2020-07-28] MEDS ORDERED: Gabapentin 100 MG CAPSULE PO PRN (14:18)
[2020-07-28] MEDS ORDERED: Ondansetron ODT 4 MG TAB.RAPDIS PO PRN (14:18)
[2020-07-28] MEDS ORDERED: SUCROFERRIC OXYHYDROXIDE 1000 MG PO SCH (17:00)
[2020-07-28] MEDS ORDERED: lamoTRIgine 100 MG TABLET PO SCH (21:00)
[2020-07-28] MEDS: Cholecalciferol (D-3) 1,000 UNIT (25MCG) TABLET PO SCH (21:03)
[2020-07-29 02:23] LABS: Hematocrit 37.9 % (35.3-44.9); Immature Platelets 1.2 % (1.1-6.1); Mean Corpuscular Hemoglobin 29.6 pg (28.0-33.3); Mean Corpuscular Volume 102.2 fL (83.0-100.0); Mean Platelet Volume 8.9 fL (9.4-12.4); Red Blood Count 3.71 M/mcL (3.82-4.97); Red Cell Distribution Width 16.4 % (11.5-14.5); White Blood Count 8.2 K/mcL (4.3-11.1)
[2020-07-29 02:43] LABS: Calcium 7.6 mg/dL (8.6-10.3); Potassium 3.2 mEq/L (3.5-5.1)
[2020-07-29] MEDS: *HR* Heparin 5,000 UNIT/ML VIAL SQ SCH (05:10)
[2020-07-29 06:38] VITALS: BP 113/66
[2020-07-29] MEDS ORDERED: Perit. Dialysis with Dex 1.5 % 12,000 ML PERITONEAL ONE (08:00)
[2020-07-29] MEDS ORDERED: Potassium Effervescent 25 MEQ TABLET.EFF PO ONE (08:18)
[2020-07-29] MEDS ORDERED: Colchicine 0.6 MG TABLET PO SCH (09:00)
[2020-07-29] MEDS ORDERED: Aspirin Enteric Coated 81 MG Tablet PO SCH (09:00)
[2020-07-29] MEDS ORDERED: allopurinoL 100 MG TABLET PO SCH (09:00)
[2020-07-29] MEDS: Cholecalciferol (D-3) 1,000 UNIT (25MCG) TABLET PO SCH (09:02)
[2020-07-29] MEDS: Insulin LISPRO 300 UNITS/3 ML VIAL SQ SCH ×2 (09:10→11:56)
[2020-07-29] MEDS: Gentamicin Oint 15 GM TUBE TP SCH (10:27)
== END 2020-07-29 12:12 | disposition home health service (06) ==
LOC: 3ANU → SUATTDRO 10:22
PROVIDERS: ADMIT Pharmacist; ATTEND Family Medicine

== ENCOUNTER 2020-08-18 12:17 | Inpatient (IN) ==
[2020-08-18 14:08] LABS: Calcium 7.9 mg/dL (8.6-10.3); Potassium 2.4 mEq/L (3.5-5.1)
[2020-08-18] MEDS ORDERED: 0.9 % Sodium Chloride 1,000 ML IVC ONE ×3 (14:37→18:41)
[2020-08-18] MEDS ORDERED: Potassium Chloride 40 MEQ, Lidocaine 1% 2 ML in D5% in Water 500 ML IVPB ONE (14:37)
[2020-08-18] MEDS ORDERED: Ondansetron 4 MG/2 ML VIAL IVP ONE (14:37)
[2020-08-18] MEDS ORDERED: Isovue-370 500 ML BOTTLE IVP ONE (14:37)
[2020-08-18] MEDS ORDERED: Vancomycin 1,250 MG/262.5 ML IV.SOLN IVPB ONE (14:38)
[2020-08-18] MEDS ORDERED: Piperacillin/Tazobactam 3.375 GM in 0.9 % Sodium Chloride Mini Bag 100 ML IVPB ONE (14:38)
[2020-08-18 15:24] LABS: Basophils # 0.2 K/mcL (0.0-0.2); Basophils % 0.9 %; Eosinophils % 0.1 %; Hematocrit 43.6 % (35.3-44.9); Hemoglobin 13.1 g/dL (11.5-15.4); Immature Granulocytes % 6.8 % (0-4); Lymphocytes # 0.8 K/mcL (0.6-4.6); Lymphocytes % 4.3 %; Mean Corpuscular Hemoglobin 30.2 pg (28.0-33.3); Mean Corpuscular Volume 100.5 fL (83.0-100.0); Mean Platelet Volume 9.3 fL (9.4-12.4); Monocytes # 0.4 K/mcL (0.0-1.3); Monocytes % 2.2 %; Neutrophils # 15.4 K/mcL (1.6-8.9); Platelet Count 212 K/mcL (140-400); Red Blood Count 4.34 M/mcL (3.82-4.97); Red Cell Distribution Width 15.3 % (11.5-14.5); Segmented Neutrophils % 85.7 %
[2020-08-18 15:53] LABS: Platelet Estimate Normal (Normal)
[2020-08-18 18:45] LABS: Amorphous Sediment,Urine Few per hpf (None-Few); Bacteria,Urine Moderate per hpf (None-Few); Bilirubin,Urine Negative (Negative); Blood,Urine Moderate (Negative); Calcium Oxalate Crystals,Urine Present; Clarity,Urine Ex.Turbid (Clear); Color,Urine Orange (Yellow); Glucose,Urine (UA) 100 mg/dL (Normal); Ketones,Urine Negative (Negative); Leukocyte Esterase,Urine Large (Negative); Mucus,Urine Few per lpf (None-Few); Nitrite,Urine Negative (Negative); PH,Urine 5.5 pH Units (5.0-8.0); Protein,Urine 100 mg/dL (Neg-Trace); RBC,Urine TNTC per hpf (0-3); Specific Gravity,Urine 1.018 (1.010-1.025); Squamous Epithelial Cell,Urine Many per hpf (None-Few); Transitional Epi Cells,Urine Few per hpf (None-Few); Urobilinogen,Urine Normal (Normal); WBC,Urine TNTC per hpf (0-3)
[2020-08-18] MEDS ORDERED: Naloxone 0.4 MG/ML INJ IVP PRN (18:54)
[2020-08-18] MEDS ORDERED: D5% in Water 1,000 ML IVC PRN (19:20)
[2020-08-18] MEDS ORDERED: *HR* Dextrose 50 % in Water (Vial) 50 ML VIAL IVP PRN (19:20)
[2020-08-18] MEDS ORDERED: Dextrose Gel 15 GM/37.5 ML TUBE PO PRN ×2 (19:20)
[2020-08-18] MEDS ORDERED: Fluconazole 200 MG/100 ML 200 MG/100 ML BAG IVPB SCH (21:00)
[2020-08-18] MEDS ORDERED: VANCOMYCIN IVPB PRN (21:08)
[2020-08-18] MEDS ORDERED: [UNRECOGNIZED DRUG - OTHER] IVPB PRN (21:08)
[2020-08-18] MEDS: Insulin LISPRO 300 UNITS/3 ML VIAL SQ SCH (22:41)
[2020-08-18] MEDS: *HR* OxyCODONE/APAP 10/325 TABLET PO PRN (22:42)
[2020-08-19 01:16] LABS: Basophils # 0.1 K/mcL (0.0-0.2); Basophils % 0.3 %; Eosinophils % 0.3 %; Hematocrit 38.6 % (35.3-44.9); Immature Granulocytes % 2.6 % (0-4); Lymphocytes # 1.5 K/mcL (0.6-4.6); Mean Corpuscular Hemoglobin 30.4 pg (28.0-33.3); Mean Corpuscular Volume 104.9 fL (83.0-100.0); Mean Platelet Volume 9.3 fL (9.4-12.4); Monocytes # 0.5 K/mcL (0.0-1.3); Monocytes % 3.2 %; Neutrophils # 12.7 K/mcL (1.6-8.9); Platelet Count 166 K/mcL (140-400); Red Blood Count 3.68 M/mcL (3.82-4.97); Red Cell Distribution Width 15.7 % (11.5-14.5); Segmented Neutrophils % 83.6 %; White Blood Count 15.1 K/mcL (4.3-11.1)
[2020-08-19 01:24] LABS: Calcium 6.7 mg/dL (8.6-10.3); Hemoglobin 11.2 g/dL (11.5-15.4); Potassium 2.7 mEq/L (3.5-5.1)
[2020-08-19] MEDS: *HR* OxyCODONE/APAP 10/325 TABLET PO PRN ×2 (04:54→20:32)
[2020-08-19] MEDS: Piperacillin/Tazobactam 3.375 GM in 0.9 % Sodium Chloride Mini Bag 100 ML IVPB SCH ×2 (08:50→20:33)
[2020-08-19] MEDS: Insulin LISPRO 300 UNITS/3 ML VIAL SQ SCH ×4 (08:51→20:52)
[2020-08-19] MEDS ORDERED: Magnesium Sulfate 1 GM/102 ML PIGGYBACK IVPB ONE (10:04)
[2020-08-19 15:55] LABS: Magnesium 1.5 mg/dL (1.6-2.6); Potassium 2.9 mEq/L (3.5-5.1)
[2020-08-19] MEDS: (Sucroferric Oxyhydroxide [Velphoro] 1,000 MG) PO SCH (17:57)
[2020-08-19] MEDS: lamoTRIgine 100 MG TABLET PO SCH (20:31)
[2020-08-19] MEDS: Fluconazole 200 MG/100 ML 100 MG/50 ML BAG IVPB SCH (20:57)
[2020-08-19] MEDS ORDERED: Ondansetron 4 MG/2 ML VIAL IVP ONE (21:40)
[2020-08-20 03:45] LABS: Calcium 7.3 mg/dL (8.6-10.3); Magnesium 1.7 mg/dL (1.6-2.6); Potassium 2.8 mEq/L (3.5-5.1)
[2020-08-20 05:57] LABS: Hematocrit 39.6 % (35.3-44.9); Hemoglobin 11.6 g/dL (11.5-15.4); Immature Granulocytes % 2.8 % (0-4); Lymphocytes # 1.4 K/mcL (0.6-4.6); Lymphocytes % 10.4 %; Mean Corpuscular HGB Conc 29.3 g/dL (31.6-35.5); Mean Corpuscular Hemoglobin 29.9 pg (28.0-33.3); Mean Corpuscular Volume 102.1 fL (83.0-100.0); Mean Platelet Volume 9.7 fL (9.4-12.4); Neutrophils # 11.4 K/mcL (1.6-8.9); Platelet Count 186 K/mcL (140-400); Red Blood Count 3.88 M/mcL (3.82-4.97); Red Cell Distribution Width 15.9 % (11.5-14.5); Segmented Neutrophils % 82.5 %; White Blood Count 13.8 K/mcL (4.3-11.1)
[2020-08-20 05:58] LABS: Basophils # 0.1 K/mcL (0.0-0.2); Basophils % 0.6 %; Eosinophils # 0.1 K/mcL (0.0-0.6); Eosinophils % 0.4 %; Monocytes # 0.5 K/mcL (0.0-1.3); Monocytes % 3.3 %
[2020-08-20] MEDS: Insulin LISPRO 300 UNITS/3 ML VIAL SQ SCH ×4 (08:14→20:49)
[2020-08-20] MEDS: (Sucroferric Oxyhydroxide [Velphoro] 1,000 MG) PO SCH ×3 (08:14→16:14)
[2020-08-20] MEDS: Cholecalciferol (D-3) 1,000 UNIT (25MCG) TABLET PO SCH (08:16)
[2020-08-20] MEDS: Piperacillin/Tazobactam 3.375 GM in 0.9 % Sodium Chloride Mini Bag 100 ML IVPB SCH ×2 (08:16→20:48)
[2020-08-20] MEDS: allopurinoL 100 MG TABLET PO SCH (08:16)
[2020-08-20] MEDS: Renal Vitamin 1 CAP CAPSULE PO SCH (08:16)
[2020-08-20] MEDS ORDERED: Perit. Dialysis with Dex 2.5 % 12,000 ML PERITONEAL ONE (10:00)
[2020-08-20] MEDS: *HR* Heparin 5,000 UNIT/ML VIAL SQ SCH (20:47)
[2020-08-20] MEDS: lamoTRIgine 100 MG TABLET PO SCH (20:48)
[2020-08-21] MEDS: Fluconazole 200 MG/100 ML 100 MG/50 ML BAG IVPB SCH ×2 (03:54→23:18)
[2020-08-21] MEDS: *HR* Heparin 5,000 UNIT/ML VIAL SQ SCH ×3 (06:21→20:56)
[2020-08-21] MEDS: Insulin LISPRO 300 UNITS/3 ML VIAL SQ SCH ×4 (08:38→20:48)
[2020-08-21] MEDS: (Sucroferric Oxyhydroxide [Velphoro] 1,000 MG) PO SCH ×3 (08:38→15:14)
[2020-08-21] MEDS: Cholecalciferol (D-3) 1,000 UNIT (25MCG) TABLET PO SCH (09:28)
[2020-08-21] MEDS: Renal Vitamin 1 CAP CAPSULE PO SCH (09:28)
[2020-08-21] MEDS: allopurinoL 100 MG TABLET PO SCH (09:28)
[2020-08-21] MEDS: Piperacillin/Tazobactam 3.375 GM in 0.9 % Sodium Chloride Mini Bag 100 ML IVPB SCH ×2 (09:29→20:56)
[2020-08-21 12:08] LABS: Hematocrit 43.2 % (35.3-44.9); Mean Corpuscular HGB Conc 29.6 g/dL (31.6-35.5); Mean Corpuscular Hemoglobin 29.8 pg (28.0-33.3); Mean Corpuscular Volume 100.7 fL (83.0-100.0); Mean Platelet Volume 8.9 fL (9.4-12.4); Platelet Count 172 K/mcL (140-400); Red Blood Count 4.29 M/mcL (3.82-4.97); Red Cell Distribution Width 16.2 % (11.5-14.5); White Blood Count 17.3 K/mcL (4.3-11.1)
[2020-08-21 12:19] LABS: Calcium 7.4 mg/dL (8.6-10.3); Hemoglobin 12.8 g/dL (11.5-15.4); Magnesium 1.7 mg/dL (1.6-2.6); Phosphorous 6.4 mg/dL (2.7-4.5); Potassium 3.2 mEq/L (3.5-5.1)
[2020-08-21] MEDS ORDERED: Vancomycin 500 MG in 0.9 % Sodium Chloride Mini Bag 100 ML IVPB ONE (13:37)
[2020-08-21] MEDS ORDERED: Perit. Dialysis with Dex 2.5 % 12,000 ML PERITONEAL ONE (19:25)
[2020-08-21] MEDS: lamoTRIgine 100 MG TABLET PO SCH (20:56)
[2020-08-22] MEDS: *HR* Heparin 5,000 UNIT/ML VIAL SQ SCH ×3 (06:07→20:36)
[2020-08-22 07:23] LABS: Hemoglobin 11.4 g/dL (11.5-15.4); Mean Platelet Volume 9.4 fL (9.4-12.4)
[2020-08-22 07:24] LABS: Mean Corpuscular HGB Conc 29.2 g/dL (31.6-35.5); Mean Corpuscular Volume 102.6 fL (83.0-100.0); Platelet Count 153 K/mcL (140-400); Red Cell Distribution Width 16.3 % (11.5-14.5); White Blood Count 12.6 K/mcL (4.3-11.1)
[2020-08-22 08:08] LABS: Calcium 7.2 mg/dL (8.6-10.3); Magnesium 1.6 mg/dL (1.6-2.6); Phosphorous 5.7 mg/dL (2.7-4.5); Potassium 2.8 mEq/L (3.5-5.1)
[2020-08-22] MEDS ORDERED: 0.9 % Sodium Chloride 250 ML IVC PRN (08:28)
[2020-08-22] MEDS: (Sucroferric Oxyhydroxide [Velphoro] 1,000 MG) PO SCH ×3 (08:39→16:44)
[2020-08-22] MEDS: Insulin LISPRO 300 UNITS/3 ML VIAL SQ SCH ×4 (08:39→20:37)
[2020-08-22] MEDS: Cholecalciferol (D-3) 1,000 UNIT (25MCG) TABLET PO SCH (08:40)
[2020-08-22] MEDS: Piperacillin/Tazobactam 3.375 GM in 0.9 % Sodium Chloride Mini Bag 100 ML IVPB SCH ×2 (08:40→20:35)
[2020-08-22] MEDS: Renal Vitamin 1 CAP CAPSULE PO SCH (08:40)
[2020-08-22] MEDS: allopurinoL 100 MG TABLET PO SCH (08:41)
[2020-08-22] MEDS ORDERED: 0.9 % Sodium Chloride 500 ML IVC ONE (09:35)
[2020-08-22] MEDS ORDERED: 0.9 % Sodium Chloride 500 ML ONE (09:37)
[2020-08-22 10:04] LABS: RBC,Peritoneal Fluid < 2000 RBC/mcL
[2020-08-22 15:32] LABS: Eosinophils,Peritoneal Fluid 6 %
[2020-08-22 15:34] LABS: Appearance of Peritoneal Fl CLEAR (Clear)
[2020-08-22] MEDS ORDERED: *HR* LORazepam 2 MG/ML VIAL IVP PRN (16:26)
[2020-08-22 17:35] LABS: Estimated Average Glucose 177 mg/dl
[2020-08-22] MEDS: *HR* OxyCODONE/APAP 10/325 TABLET PO PRN (20:36)
[2020-08-22] MEDS: lamoTRIgine 100 MG TABLET PO SCH (20:36)
[2020-08-22] MEDS ORDERED: Insulin DETEMIR 100 UNIT/ML X5UNITS SQ SCH (21:00)
[2020-08-22] MEDS: Fluconazole 200 MG/100 ML 100 MG/50 ML BAG IVPB SCH (23:57)
[2020-08-23 03:06] LABS: Hemoglobin 11.8 g/dL (11.5-15.4); Mean Corpuscular HGB Conc 30.3 g/dL (31.6-35.5); Mean Corpuscular Hemoglobin 29.9 pg (28.0-33.3); Mean Platelet Volume 9.1 fL (9.4-12.4); Platelet Count 193 K/mcL (140-400); Red Blood Count 3.94 M/mcL (3.82-4.97); Red Cell Distribution Width 16.1 % (11.5-14.5); White Blood Count 14.3 K/mcL (4.3-11.1)
[2020-08-23 03:22] LABS: Calcium 7.3 mg/dL (8.6-10.3); Potassium 3.4 mEq/L (3.5-5.1)
[2020-08-23] MEDS: *HR* Heparin 5,000 UNIT/ML VIAL SQ SCH ×2 (05:43→12:47)
[2020-08-23] MEDS: Insulin LISPRO 300 UNITS/3 ML VIAL SQ SCH ×3 (07:38→17:46)
[2020-08-23] MEDS: Piperacillin/Tazobactam 3.375 GM in 0.9 % Sodium Chloride Mini Bag 100 ML IVPB SCH (07:49)
[2020-08-23] MEDS: allopurinoL 100 MG TABLET PO SCH (07:49)
[2020-08-23] MEDS: Cholecalciferol (D-3) 1,000 UNIT (25MCG) TABLET PO SCH (07:49)
[2020-08-23] MEDS: (Sucroferric Oxyhydroxide [Velphoro] 1,000 MG) PO SCH ×3 (07:50→17:27)
[2020-08-23] MEDS: Renal Vitamin 1 CAP CAPSULE PO SCH (07:50)
[2020-08-23] MEDS ORDERED: Perit. Dialysis with Dex 2.5 % 12,000 ML PERITONEAL SCH (08:00)
[2020-08-23] MEDS ORDERED: Perit. Dialysis with Dex 1.5 % 12,000 ML PERITONEAL STA (09:22)
[2020-08-23] MEDS ORDERED: Gentamicin Oint 15 GM TUBE TP SCH (09:45)
[2020-08-23] MEDS ORDERED: 0.9 % Sodium Chloride 500 ML IVC ONE (16:04)
[2020-08-23] MEDS ORDERED: 0.9 % Sodium Chloride 500 ML ONE (16:06)
[2020-08-23 19:10] VITALS: BP 72/45
[2020-08-23] MEDS ORDERED: Albumin 25% 25gram/100mL 25 GM/100 ML IV.SOLN IVPB ONE (20:07)
[2020-08-23] MEDS: lamoTRIgine 100 MG TABLET PO SCH (20:24)
== END 2020-08-23 21:00 | disposition short-term general hospital (02) | DRG 871 ==
LOC: 2ANU 12:17 → EMEROOARM 12:17 → OBSVTOIN 19:17 → SUATTDRO 19:17 → 2ANU 20:08
PROVIDERS: ADMIT Internal Medicine; ATTEND Internal Medicine